=== PATIENT | male | born 1980 | race Hispanic/Latino ===

== ENCOUNTER → 2017-12-31 | Day surgery (SDC) | payer OTHER ==
[~2017-12-31] VITALS: Ht 180.3 cm; Wt 156.5 kg
--- NOTE | 2017-12-31 13:17 | Operative Report ---
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 He was consented for Ahmed glaucoma drainage device implant of the right eye. The Ahmed was selected because of the propensity for patients with uveitic glaucoma to stop producing aqueous humor after surgery. This can lead to shallow or flat chambers and over filtration. The patient was brought to the operating room and standard monitoring equipment was attached. The patient was prepped and draped in the usual fashion for sterile intraocular surgery. A lid speculum was used to retract the lids. The patient was asked to look down. Conjunctiva and Tenon's tissue was opened at the 12 o'clock position using non- toothed forceps and a Vannas scissors. A fornix based conjunctival peritomy was continued using Abril's scissors. Additional anesthesia was achieved by infusing a 50:50 mixture of 2 percent lidocaine and 0.75 Marcaine which had been mixed previously underneath the conjunctiva and tenon's tissue. Abril and then Darrian scissors were used to open the conjunctiva and tenons far posteriorly to create space for the shunt plate. The Ahmed was removed from its packaging and the tube was ligated with a 30-gauge cannula and balanced salt solution pushed through to prime the valve. The device was then inserted into the pocket created underneath the tenons fascia in the superior temporal quadrant. The plate was sutured to the eye wall using 2 interrupted 6-0 silk sutures. The knots were trimmed. The sclera at the limbus was cleaned off using a 69 blade and a Weck-Lea sponge. A partial thickness groove was made tangential to the limbus approximately 3.5 mm back using the same 69 blade. 23- gauge needle on a needle arredondo was then used to slowly advance partial- thickness through the sclera creating a 3.5 mm tunnel track to the limbus and then through the limbus area into the anterior chamber. The tube was then threaded through this and checked found to be too long removed and trimmed to an appropriate length. The tube was then placed inspected found to be in adequate position inside the eye and then it was sutured to the eye wall using 2 10-0 nylon sutures. The pathway of the 2 was slightly circuitous so that it entered the anterior chamber almost at 12:00. Tutoplast pericardium was then removed from its packaging and a 3.5 x 5 mm rectangular piece was cut and this was sutured to the eye wall in 3 places using 10-0 nylon interrupted sutures to cover the exposed part of the to behind the scleral tunnel. 3 venting slits were made in the tube behind the tunnel and prior to placement of the patch graft. The conjunctiva was then reapproximated to the eye wall after it was mobilized and placed over the patch graft and visible tube using 6-0 vicryl suture. 3 interrupteds and 1 running was used for this purpose. The eye was checked and left at an adequate tone. Prior to the conclusion of the case 3 mg of dexamethasone solution was injected under the conjunctiva and tenon's tissue inferiorly. The lid peculum was then removed. The eye was patched over antibiotic, steroid [and atropine drops] and a combination of antibiotic and steroid ointment. The eye was then shielded. Patient was removed from the operating room in stable condition and brought to same-day surgery having tolerated the procedure well.
== END ==
LOC: STS 02:36
DX: H40.41 Glaucoma secondary to eye inflammation, right eye (principal); J45.909 Unspecified asthma, uncomplicated
CPT/HCPCS: J1100; J2001; J2250